=== PATIENT | female | born 1960 | race Caucasian/White ===

== ENCOUNTER → 2017-11-08 | Outpatient (CLI) | payer BC ==
[~2017-11-08] MED LIST: GABAPENTIN PO; HYDROCHLOROTHIAZIDE PO; LIPITOR PO; LISINOPRIL20 MG PO; METFORMIN HCL500 MG PO; NOVOLOG100 UNITS/ SQ; TRICOR PO; [UNRECOGNIZED DRUG - OTHER] PO
--- NOTE | 2017-11-09 08:37 | Diagnostic Imaging Report ---
TECHNIQUE: Magnetic resonance imaging of the RIGHT KNEE was performed WITHOUT injected contrast. HISTORY: Stiffness of right knee, pain, in the right side COMPARISON: None available. FINDINGS: LIGAMENTS AND TENDONS: ACL: Intact PCL: Intact Collateral ligaments: Intact Iliotibial band: Unremarkable Popliteal tendon: Intact Extensor mechanism: Intact JOINT: Menisci: Medial: A vertically oriented posterior root tear near the tibial attachment, results in near complete transection of the meniscus and peripheral extrusion of the body. Intrasubstance degeneration of the body and remaining posterior horn. Lateral: Intact Articular Cartilage: Medial Compartment: Low-grade erosion of the weightbearing cartilage. Lateral Compartment: No focal defect. Patellofemoral Compartment: Diffuse erosion, most notably intermediate grade at the patellar apex. Joint Fluid: Trace effusion and synovitis along with a nondistended Conner's cyst. BONES: No focal or infiltrative bone marrow replacing abnormality. Focal bone marrow edema within the subchondral weightbearing bone at the periphery of the medial tibial plateau with central ill-defined linear hypointense signal (series 5 image 14 and series 6 image 14). SOFT TISSUES: Mild diffuse superficial soft tissue edema. IMPRESSION: 1. Focal, nondisplaced, incomplete subchondral fracture at the periphery of the medial tibial plateau. Consider an evolving insufficiency fracture, recommend correlation with bone densitometry. 2. Degenerative posterior root tear of the medial meniscus. 3. Mild medial and patellofemoral compartment osteoarthrosis. Signed by: Dr. Daryl Garza D.O., M.M.M. on 11/09/2017 8:33 AM
== END ==
LOC: MRI 13:31
PROVIDERS: ATTEND Family Medicine
DX: M25.661 Stiffness of right knee, not elsewhere classified (principal)

== ENCOUNTER → 2020-09-19 | Outpatient (CLI) | payer BC ==
[2020-09-19 16:35] LABS: CREATININE, SERUM 2.95 mg/dL (0.57-1.11)
== END ==
LOC: CT 15:52
PROVIDERS: ATTEND Internal Medicine Cardiovascular Disease
DX: G45.9 Transient cerebral ischemic attack, unspecified (principal); I77.9 Disorder of arteries and arterioles, unspecified; H53.9 Unspecified visual disturbance
CPT/HCPCS: 36415; 82565; 84520

== ENCOUNTER 2021-01-03 15:24 | Inpatient (IN) | payer BC ==
[~2021-01-03] VITALS: Ht 165.1 cm; Wt 115.7 kg
[2021-01-03] MEDS ORDERED: ASPIRIN 81 MG CHEW TAB PO STA (16:28)
[2021-01-03 17:19] LABS: BASOPHILS # (AUTO) 0.1 (0.0-0.1); BASOPHILS % 0.8 % (0.0-1.0); EOSINOPHILS # (AUTO) 0.2 (0.0-0.4); EOSINOPHILS % 1.8 % (0.0-6.0); HEMATOCRIT 37.6 % (34.2-44.1); HEMOGLOBIN 11.4 g/dL (12.0-16.0); LYMPHOCYTES # (AUTO) 1.9 (1.0-3.2); LYMPHOCYTES % 19.2 % (18.0-39.1); MEAN CORPUSCULAR HEMOGLOBIN 26.5 pg (28-32); MEAN CORPUSCULAR HGB CONC 30.3 g/dL (31-35); MEAN CORPUSCULAR VOLUME 87.2 fL (81-99); MONOCYTES # (AUTO) 0.9 (0.2-0.8); NEUTROPHILS # (AUTO) 6.8 (2.1-6.9); NEUTROPHILS % 68.7 % (38.7-80.0); PLATELET COUNT 419 x10e3/uL (140-360); RED BLOOD COUNT 4.31 x10e6/uL (3.6-5.1); RED CELL DISTRIBUTION WIDTH 13.6 % (11.7-14.4)
[2021-01-03 17:35] LABS: ALBUMIN/GLOBULIN RATIO 0.8 (0.8-2.0); ANION GAP 15.8 mmol/L (8-16); CALCIUM 9.2 mg/dL (8.4-10.2); CREATININE, SERUM 3.33 mg/dL (0.57-1.11); MAGNESIUM 2.2 MG/DL (1.3-2.1); POTASSIUM 4.8 mmol/L (3.5-5.1)
[2021-01-03] MEDS ORDERED: CLOPIDOGREL BISULFATE 75 MG TAB PO ONE (18:00)
[2021-01-03] MEDS ORDERED: HEPARIN SOD (PORCINE) 5,000 UNIT/ML VIAL IV ONE (18:00)
[2021-01-03] MEDS ORDERED: ASPIRIN 81 MG CHEW TAB PO ONE (18:00)
[2021-01-03] MEDS ORDERED: SODIUM CHLORIDE FLUSH 10 ML SYR INJ PRN (18:30)
[2021-01-03] MEDS ORDERED: DEXTROSE 50% SYRINGE 50 ML IV PRN (18:30)
[2021-01-03 19:49] LABS: INR 0.99; PROTHROMBIN TIME 13.7 seconds (11.9-14.5)
[2021-01-03 19:50] LABS: PARTIAL THROMBOPLASTIN TIME 28.6 seconds (23.8-35.5)
[2021-01-03] MEDS: HEPARIN 25,000 UNIT 1,000 UNIT in DEXTROSE 5% 250ML 250 ML IV SCH (20:05)
[2021-01-03] MEDS ORDERED: HEPARIN 25,000 UNIT DRIP IV ONE (20:11)
[2021-01-03 21:30] VITALS: BP 176/74
[2021-01-03 21:55] VITALS: BP 114/59
[2021-01-03] MEDS: INSULIN REGULAR, HUMAN 100 UNIT/1 ML 3ML VIAL SQ SCH (21:57)
[2021-01-03] MEDS ORDERED: ASPIRIN CHEW81 MG PO (23:10)
[2021-01-03] MEDS ORDERED: ATORVASTATIN CA20 MG PO (23:10)
[2021-01-03] MEDS ORDERED: GABAPENTIN800 MG (23:10)
[2021-01-03] MEDS ORDERED: METOPROLOL TART25 MG PO (23:10)
[2021-01-03] MEDS ORDERED: LISINOPRIL10 MG PO (23:10)
[2021-01-03] MEDS ORDERED: NOVOLIN 70100 UNIT/3 (23:10)
[2021-01-03] MEDS ORDERED: GABAPENTIN 400 MG CAP PO SCH (23:25)
[2021-01-03] MEDS ORDERED: GABAPENTIN 400 MG CAP PO ONE (23:30)
[2021-01-04] VITALS (8 sets, daily range): BP systolic 143–181; BP diastolic 65–88
[2021-01-04 02:25] LABS: BASOPHILS # (AUTO) 0.1 (0.0-0.1); BASOPHILS % 0.8 % (0.0-1.0); EOSINOPHILS # (AUTO) 0.3 (0.0-0.4); HEMATOCRIT 33.7 % (34.2-44.1); HEMOGLOBIN 10.6 g/dL (12.0-16.0); LYMPHOCYTES % 20.9 % (18.0-39.1); MEAN CORPUSCULAR HGB CONC 31.5 g/dL (31-35); MONOCYTES # (AUTO) 0.8 (0.2-0.8); MONOCYTES % 8.1 % (4.4-11.3); NEUTROPHILS # (AUTO) 6.3 (2.1-6.9); NEUTROPHILS % 66.9 % (38.7-80.0); PLATELET COUNT 418 x10e3/uL (140-360); RED BLOOD COUNT 3.92 x10e6/uL (3.6-5.1); RED CELL DISTRIBUTION WIDTH 13.7 % (11.7-14.4)
[2021-01-04 02:49] LABS: CREATINE KINASE MB 13.1 ng/mL (0-5.0)
[2021-01-04 02:57] LABS: ALBUMIN 2.7 g/dL (3.5-5.0); ALBUMIN/GLOBULIN RATIO 0.8 (0.8-2.0); ANION GAP 13.6 mmol/L (8-16); CALCIUM 8.7 mg/dL (8.4-10.2); CHOL/HDL RATIO 5.6 (3.0-3.6); CREATININE, SERUM 3.17 mg/dL (0.57-1.11); POTASSIUM 4.6 mmol/L (3.5-5.1)
[2021-01-04] MEDS: INSULIN REGULAR, HUMAN 100 UNIT/1 ML 3ML VIAL SQ SCH ×4 (07:30→21:00)
[2021-01-04] MEDS: CLOPIDOGREL BISULFATE 75 MG TAB PO SCH (08:16)
[2021-01-04] MEDS ORDERED: CLOPIDOGREL BISULFATE 75 MG TAB PO SCH (09:00)
[2021-01-04] MEDS ORDERED: ASPIRIN 81 MG ENTERIC COATED PO SCH (09:00)
[2021-01-04] MEDS ORDERED: HYDROCHLOROTHIA25 MG PO (09:54)
[2021-01-04] MEDS ORDERED: TRICOR145 MG PO (09:54)
[2021-01-04] MEDS ORDERED: HYDRALAZINE HCL 20 MG/ML VIAL IV PRN (15:00)
[2021-01-04] MEDS: LISINOPRIL 10 MG TAB PO SCH (16:09)
[2021-01-04] MEDS: GABAPENTIN 300 MG CAP PO SCH ×2 (16:09→23:12)
[2021-01-04] MEDS ORDERED: FUROSEMIDE 40 MG TAB PO NR (16:15)
[2021-01-04] MEDS: HEPARIN 25,000 UNIT 1,000 UNIT in DEXTROSE 5% 250ML 250 ML IV SCH (17:17)
[2021-01-04] MEDS ORDERED: ATORVASTATIN 20 MG TAB PO SCH (21:00)
[2021-01-04] MEDS ORDERED: INSULIN GLARGINE 100 UNITS/ML VIAL SQ SCH (21:00)
[2021-01-04] MEDS: ONDANSETRON HCL INJ 2MG/ML 2ML 2 MG/ML VIAL IV PRN (21:23)
[2021-01-04] MEDS: MORPHINE SULFATE INJ 2 MG/ML SYR IV PRN (21:23)
[2021-01-05] VITALS (7 sets, daily range): BP systolic 109–150; BP diastolic 55–79
[2021-01-05 06:28] LABS: BASOPHILS # (AUTO) 0.1 (0.0-0.1); BASOPHILS % 0.8 % (0.0-1.0); EOSINOPHILS # (AUTO) 0.3 (0.0-0.4); EOSINOPHILS % 3.5 % (0.0-6.0); HEMATOCRIT 36.4 % (34.2-44.1); HEMOGLOBIN 11.4 g/dL (12.0-16.0); LYMPHOCYTES % 28.6 % (18.0-39.1); MEAN CORPUSCULAR HEMOGLOBIN 27.2 pg (28-32); MEAN CORPUSCULAR HGB CONC 31.3 g/dL (31-35); MEAN CORPUSCULAR VOLUME 86.9 fL (81-99); MONOCYTES # (AUTO) 0.8 (0.2-0.8); MONOCYTES % 10.9 % (4.4-11.3); NEUTROPHILS % 55.8 % (38.7-80.0); PLATELET COUNT 437 x10e3/uL (140-360); RED BLOOD COUNT 4.19 x10e6/uL (3.6-5.1); RED CELL DISTRIBUTION WIDTH 13.9 % (11.7-14.4)
[2021-01-05 07:19] LABS: ALBUMIN 2.8 g/dL (3.5-5.0); ALBUMIN/GLOBULIN RATIO 0.8 (0.8-2.0); ANION GAP 15.5 mmol/L (8-16); CALCIUM 8.5 mg/dL (8.4-10.2); CREATININE, SERUM 3.45 mg/dL (0.57-1.11); POTASSIUM 4.5 mmol/L (3.5-5.1)
[2021-01-05] MEDS: INSULIN REGULAR, HUMAN 100 UNIT/1 ML 3ML VIAL SQ SCH ×2 (07:30→11:30)
[2021-01-05] MEDS: LISINOPRIL 10 MG TAB PO SCH (07:58)
[2021-01-05] MEDS: CLOPIDOGREL BISULFATE 75 MG TAB PO SCH (07:58)
[2021-01-05] MEDS: GABAPENTIN 300 MG CAP PO SCH (07:58)
[2021-01-05] MEDS ORDERED: METOPROLOL TARTRATE 25 MG TAB PO SCH (09:00)
[2021-01-05] MEDS ORDERED: ASPIRIN 81 MG CHEW TAB PO SCH (09:00)
[2021-01-05] MEDS ORDERED: FUROSEMIDE 40 MG TAB PO SCH (09:00)
[2021-01-05] MEDS: ONDANSETRON HCL INJ 2MG/ML 2ML 2 MG/ML VIAL IV PRN (10:49)
[2021-01-05] MEDS: MORPHINE SULFATE INJ 2 MG/ML SYR IV PRN (10:50)
[2021-01-05] MEDS: HEPARIN 25,000 UNIT 1,000 UNIT in DEXTROSE 5% 250ML 250 ML IV SCH (14:13)
[2021-01-05] MEDS ORDERED: NIFEDIPINE ER30 M1 PO (15:25)
[2021-01-05] MEDS ORDERED: PLAVIX75 MG PO (15:25)
[2021-01-05] MEDS ORDERED: GABAPENTIN300 MG PO (15:25)
[2021-01-05] MEDS ORDERED: COREG6.25 MG PO (15:49)
== END 2021-01-05 16:10 | disposition home or self-care (01) | DRG 281 ==
LOC: ER 16:29 → ERHOLD 19:05 → MED/SURG 21:51
PROVIDERS: ADMIT Internal Medicine; ATTEND Internal Medicine
DX: I21.4 Non-ST elevation (NSTEMI) myocardial infarction (principal); N17.9 Acute kidney failure, unspecified; Z68.41 Body mass index [BMI] 40.0-44.9, adult; I13.2 Hypertensive heart and chronic kidney disease with heart failure and with stage 5 chronic kidney disease, or end stage renal disease; N18.5 Chronic kidney disease, stage 5; E66.01 Morbid (severe) obesity due to excess calories; I25.10 Atherosclerotic heart disease of native coronary artery without angina pectoris; E11.22 Type 2 diabetes mellitus with diabetic chronic kidney disease; I50.9 Heart failure, unspecified
CPT/HCPCS: 36415; 71045; 80053; 80061; 82550; 82553; 82948; 83735; 83880; 84484; 85025; 85610; 85730; 93005; 93306; 99284; J1644; J1817; J2270; J2405; U0002

== ENCOUNTER 2021-01-11 21:14 | Inpatient (IN) | payer BC ==
[~2021-01-11] VITALS: Ht 165.1 cm; Wt 115.7 kg
[~2021-01-11 21:14] MED LIST changes: +ASPIRIN CHEW81 MG PO; +ATORVASTATIN CA20 MG PO; +COREG6.25 MG PO; +GABAPENTIN300 MG PO; +GABAPENTIN800 MG; +HYDROCHLOROTHIA25 MG PO; +LISINOPRIL10 MG PO; +METOPROLOL TART25 MG PO; +NIFEDIPINE ER30 M1 PO; +NOVOLIN 70100 UNIT/3; +PLAVIX75 MG PO; +TRICOR145 MG PO
[2021-01-11 22:07] LABS: BASOPHILS # (AUTO) 0.1 (0.0-0.1); BASOPHILS % 0.9 % (0.0-1.0); EOSINOPHILS # (AUTO) 0.3 (0.0-0.4); EOSINOPHILS % 2.6 % (0.0-6.0); HEMATOCRIT 33.8 % (34.2-44.1); HEMOGLOBIN 10.5 g/dL (12.0-16.0); LYMPHOCYTES # (AUTO) 2.5 (1.0-3.2); LYMPHOCYTES % 25.5 % (18.0-39.1); MEAN CORPUSCULAR HGB CONC 31.1 g/dL (31-35); MEAN CORPUSCULAR VOLUME 86.9 fL (81-99); MONOCYTES # (AUTO) 0.9 (0.2-0.8); MONOCYTES % 8.8 % (4.4-11.3); NEUTROPHILS % 61.6 % (38.7-80.0); PLATELET COUNT 443 x10e3/uL (140-360); RED BLOOD COUNT 3.89 x10e6/uL (3.6-5.1); RED CELL DISTRIBUTION WIDTH 14.2 % (11.7-14.4)
[2021-01-12 00:11] LABS: ALBUMIN/GLOBULIN RATIO 0.8 (0.8-2.0); ANION GAP 17.5 mmol/L (8-16); CALCIUM 8.7 mg/dL (8.4-10.2); CREATININE, SERUM 3.81 mg/dL (0.57-1.11)
[2021-01-12 00:18] LABS: CREATINE KINASE MB 6.4 ng/mL (0-5.0)
[2021-01-12 00:19] LABS: POTASSIUM 5.5 mmol/L (3.5-5.1)
[2021-01-12] MEDS ORDERED: SODIUM BICARBONATE 8.4% INJ 50 ML SYR IV STA (01:34)
[2021-01-12] MEDS ORDERED: SOD POLYSTYRENE SULFONATE SUSP 15 GM/60 ML BTL PO ONE (01:45)
[2021-01-12 07:54] LABS: CREATINE KINASE MB 11.4 ng/mL (0-5.0)
[2021-01-12] MEDS: ASPIRIN 81 MG CHEW TAB PO SCH (08:58)
[2021-01-12] MEDS: NIFEDIPINE CR 30 MG TAB PO SCH (08:59)
[2021-01-12] MEDS: GABAPENTIN 300 MG CAP PO SCH ×2 (08:59→17:55)
[2021-01-12] MEDS: ATORVASTATIN 40 MG TAB PO SCH (08:59)
[2021-01-12] MEDS: CLOPIDOGREL BISULFATE 75 MG TAB PO SCH (08:59)
[2021-01-12] MEDS: FENOFIBRATE 145 MG TAB PO SCH (08:59)
[2021-01-12] MEDS ORDERED: NPH, HUMAN INSULIN ISOPHANE 100 UNIT/1 ML 3ML VIAL SQ SCH (09:00)
[2021-01-12] MEDS: CARVEDILOL 3.125 MG TAB PO SCH ×2 (09:07→17:55)
[2021-01-12] MEDS: HUMULIN 70/30 VIAL SQ SCH (12:07)
[2021-01-12 12:30] LABS: CALCIUM 8.9 mg/dL (8.4-10.2); CREATININE, SERUM 3.48 mg/dL (0.57-1.11)
[2021-01-12 15:57] LABS: FERRITIN 146.02 ng/mL (4.63-204.00)
[2021-01-12 17:12] LABS: CREATINE KINASE MB 9.1 ng/mL (0-5.0)
[2021-01-12 19:24] LABS: CLARITY,URINE HAZY (CLEAR); COLOR,URINE YELLOW (YELLOW)
[2021-01-12 19:25] LABS: KETONES,URINE NEGATIVE (NEGATIVE); LEUKOCYTE ESTERASE ,URINE NEGATIVE (NEGATIVE); NITRITE,URINE NEGATIVE (NEGATIVE); PROTEIN,URINE DIPSTICK >=300 (NEGATIVE); URINE UROBILINOGEN 0.2 mg/dL (0.2 - 1)
[2021-01-12 19:43] LABS: BACTERIA,URINE MANY /HPF
[2021-01-12 20:19] LABS: CREATININE,URINE RANDOM 57.98 mg/dL (47-110)
[2021-01-12 20:33] LABS: TOTAL PROTEIN, URINE 451.4 mg/dL (1-14)
[2021-01-13 05:50] LABS: BASOPHILS # (AUTO) 0.1 (0.0-0.1); BASOPHILS % 0.9 % (0.0-1.0); EOSINOPHILS # (AUTO) 0.3 (0.0-0.4); EOSINOPHILS % 3.6 % (0.0-6.0); HEMATOCRIT 36.1 % (34.2-44.1); HEMOGLOBIN 10.8 g/dL (12.0-16.0); LYMPHOCYTES % 34.2 % (18.0-39.1); MEAN CORPUSCULAR HEMOGLOBIN 26.7 pg (28-32); MEAN CORPUSCULAR HGB CONC 29.9 g/dL (31-35); MEAN CORPUSCULAR VOLUME 89.1 fL (81-99); MONOCYTES # (AUTO) 0.9 (0.2-0.8); MONOCYTES % 10.7 % (4.4-11.3); NEUTROPHILS # (AUTO) 4.4 (2.1-6.9); NEUTROPHILS % 50.1 % (38.7-80.0); PLATELET COUNT 397 x10e3/uL (140-360); RED BLOOD COUNT 4.05 x10e6/uL (3.6-5.1); RED CELL DISTRIBUTION WIDTH 13.9 % (11.7-14.4)
[2021-01-13 06:43] LABS: ALBUMIN 2.8 g/dL (3.5-5.0); ALBUMIN/GLOBULIN RATIO 0.8 (0.8-2.0); ANION GAP 18.1 mmol/L (8-16); CALCIUM 8.6 mg/dL (8.4-10.2); CREATININE, SERUM 2.92 mg/dL (0.57-1.11); POTASSIUM 5.1 mmol/L (3.5-5.1)
[2021-01-13] MEDS ORDERED: DEXTROSE 50% SYRINGE 50 ML IV PRN (07:30)
[2021-01-13] MEDS: ASPIRIN 81 MG CHEW TAB PO SCH (08:47)
[2021-01-13] MEDS: NIFEDIPINE CR 30 MG TAB PO SCH (08:48)
[2021-01-13] MEDS: CLOPIDOGREL BISULFATE 75 MG TAB PO SCH (08:48)
[2021-01-13] MEDS: GABAPENTIN 300 MG CAP PO SCH (08:48)
[2021-01-13] MEDS: ATORVASTATIN 40 MG TAB PO SCH (08:48)
[2021-01-13] MEDS: CARVEDILOL 3.125 MG TAB PO SCH ×2 (08:48→17:00)
[2021-01-13] MEDS: FENOFIBRATE 145 MG TAB PO SCH (08:48)
[2021-01-13] MEDS: HUMULIN 70/30 VIAL SQ SCH ×2 (08:49→16:30)
[2021-01-13] MEDS: INSULIN LISPRO 100 UNIT/1 ML 3ML VIAL SQ SCH ×4 (08:49→21:00)
[2021-01-14 04:00] VITALS: BP 168/81
[2021-01-14] MEDS: HUMULIN 70/30 VIAL SQ SCH ×2 (07:30→16:32)
[2021-01-14] MEDS: INSULIN LISPRO 100 UNIT/1 ML 3ML VIAL SQ SCH ×4 (07:30→20:59)
[2021-01-14] MEDS: NIFEDIPINE CR 30 MG TAB PO SCH (09:00)
[2021-01-14] MEDS: FENOFIBRATE 145 MG TAB PO SCH (09:00)
[2021-01-14] MEDS: ASPIRIN 81 MG CHEW TAB PO SCH (09:00)
[2021-01-14] MEDS: ATORVASTATIN 40 MG TAB PO SCH (09:00)
[2021-01-14] MEDS: CARVEDILOL 3.125 MG TAB PO SCH ×2 (09:00→16:26)
[2021-01-14] MEDS: CLOPIDOGREL BISULFATE 75 MG TAB PO SCH (09:00)
[2021-01-14] MEDS ORDERED: FUROSEMIDE 40 MG TAB ONE (12:43)
[2021-01-14] MEDS: FUROSEMIDE INJ 10 MG/ML 4 ML VIAL IV SCH ×3 (12:45→16:32)
[2021-01-14] MEDS ORDERED: GABAPENTIN 300 MG CAP ONE (13:48)
[2021-01-14 16:00] VITALS: BP 139/53
[2021-01-14] MEDS: GABAPENTIN 300 MG CAP PO SCH ×2 (16:24→21:00)
[2021-01-14 17:23] LABS: BASOPHILS # (AUTO) 0.1 (0.0-0.1); BASOPHILS % 0.1 % (0.0-1.0); EOSINOPHILS # (AUTO) 0.3 (0.0-0.4); EOSINOPHILS % 3.2 % (0.0-6.0); HEMATOCRIT 35.3 % (34.2-44.1); HEMOGLOBIN 10.9 g/dL (12.0-16.0); LYMPHOCYTES # (AUTO) 2.9 (1.0-3.2); LYMPHOCYTES % 31.5 % (18.0-39.1); MEAN CORPUSCULAR HGB CONC 30.9 g/dL (31-35); MEAN CORPUSCULAR VOLUME 87.4 fL (81-99); MONOCYTES # (AUTO) 0.9 (0.2-0.8); MONOCYTES % 9.6 % (4.4-11.3); NEUTROPHILS % 53.7 % (38.7-80.0); PLATELET COUNT 421 x10e3/uL (140-360); RED CELL DISTRIBUTION WIDTH 13.8 % (11.7-14.4)
[2021-01-14 17:24] LABS: CALCIUM 8.6 mg/dL (8.4-10.2); CREATININE, SERUM 2.82 mg/dL (0.57-1.11)
[2021-01-14 20:00] VITALS: BP 147/64
[2021-01-15] VITALS (12 sets, daily range): BP systolic 118–157; BP diastolic 61–78
[2021-01-15] MEDS: FUROSEMIDE INJ 10 MG/ML 4 ML VIAL IV SCH ×2 (05:20→17:11)
[2021-01-15 07:01] LABS: ANION GAP 14.1 mmol/L (8-16); CALCIUM 8.1 mg/dL (8.4-10.2); CREATININE, SERUM 3.05 mg/dL (0.57-1.11); POTASSIUM 5.1 mmol/L (3.5-5.1)
[2021-01-15] MEDS: HUMULIN 70/30 VIAL SQ SCH ×2 (07:30→17:09)
[2021-01-15] MEDS: INSULIN LISPRO 100 UNIT/1 ML 3ML VIAL SQ SCH ×4 (07:30→21:33)
[2021-01-15] MEDS: ATORVASTATIN 40 MG TAB PO SCH (09:00)
[2021-01-15] MEDS: GABAPENTIN 300 MG CAP PO SCH ×3 (09:00→17:33)
[2021-01-15] MEDS: ASPIRIN 81 MG CHEW TAB PO SCH (09:00)
[2021-01-15] MEDS: CLOPIDOGREL BISULFATE 75 MG TAB PO SCH (09:00)
[2021-01-15] MEDS: NIFEDIPINE CR 30 MG TAB PO SCH (09:00)
[2021-01-15] MEDS: FENOFIBRATE 145 MG TAB PO SCH (09:00)
[2021-01-15] MEDS: CARVEDILOL 3.125 MG TAB PO SCH ×2 (09:00→17:09)
[2021-01-15] MEDS ORDERED: SODIUM CHLORIDE 0.9% 1000ML 1,000 ML ONE (12:24)
[2021-01-15] MEDS ORDERED: BENZOCAINE 20% SPR 60 ML CAN ONE (12:24)
[2021-01-15] MEDS ORDERED: POVIDONE IODINE 0.05% 0.05 % ML PO ONE (13:35)
[2021-01-15] MEDS ORDERED: LIDOCAINE HCL 2% LOCAL INJ 5 ML SDV VIAL INJ ONE (13:35)
[2021-01-15] MEDS ORDERED: PROPOFOL IV EMULSION 10 MG/ML 20 ML VIAL ONE (13:35)
[2021-01-15 19:09] LABS: ALPHA 2 GLOBULIN URINE PEP 6.5 % (.)
[2021-01-15] MEDS ORDERED: ACETAMINOPHEN 325 MG TAB PO PRN (19:30)
[2021-01-16] VITALS: BP 158/68
[2021-01-16 04:00] VITALS: BP 154/68
[2021-01-16] MEDS: FUROSEMIDE INJ 10 MG/ML 4 ML VIAL IV SCH (05:26)
[2021-01-16 05:59] LABS: CALCIUM 8.3 mg/dL (8.4-10.2); CREATININE, SERUM 3.09 mg/dL (0.57-1.11)
[2021-01-16] MEDS: HUMULIN 70/30 VIAL SQ SCH (07:30)
[2021-01-16 08:44] VITALS: BP 137/67
[2021-01-16 09:04] VITALS: BP 137/67
[2021-01-16] MEDS: GABAPENTIN 300 MG CAP PO SCH (09:15)
[2021-01-16] MEDS: ASPIRIN 81 MG CHEW TAB PO SCH (09:15)
[2021-01-16] MEDS: CARVEDILOL 3.125 MG TAB PO SCH (09:15)
[2021-01-16] MEDS: NIFEDIPINE CR 30 MG TAB PO SCH (09:15)
[2021-01-16] MEDS: CLOPIDOGREL BISULFATE 75 MG TAB PO SCH (09:15)
[2021-01-16] MEDS: FENOFIBRATE 145 MG TAB PO SCH (09:15)
[2021-01-16] MEDS: ATORVASTATIN 40 MG TAB PO SCH (09:15)
[2021-01-16] MEDS ORDERED: GABAPENTIN300 MG PO (10:49)
[2021-01-16] MEDS ORDERED: LIPITOR20 MG PO (10:50)
[2021-01-16] MEDS ORDERED: FUROSEMIDE40 MG PO (10:56)
[2021-01-16] MEDS: INSULIN LISPRO 100 UNIT/1 ML 3ML VIAL SQ SCH ×2 (11:30→11:32)
== END 2021-01-16 12:33 | disposition home or self-care (01) | DRG 65 ==
LOC: ER 21:50 → ERHOLD 01-12 01:31 → MED/SURG2 01-12 03:17 → OBSVTOIN 01-13 16:05
PROVIDERS: ADMIT Internal Medicine; ATTEND Internal Medicine
DX: I63.81 Other cerebral infarction due to occlusion or stenosis of small artery (principal); N17.9 Acute kidney failure, unspecified; I13.0 Hypertensive heart and chronic kidney disease with heart failure and stage 1 through stage 4 chronic kidney disease, or unspecified chronic kidney disease; N18.4 Chronic kidney disease, stage 4 (severe); I50.30 Unspecified diastolic (congestive) heart failure; Z68.41 Body mass index [BMI] 40.0-44.9, adult; E87.2 Acidosis; I50.32 Chronic diastolic (congestive) heart failure; E11.42 Type 2 diabetes mellitus with diabetic polyneuropathy; R29.810 Facial weakness; G83.24 Monoplegia of upper limb affecting left nondominant side; E11.21 Type 2 diabetes mellitus with diabetic nephropathy; I11.0 Hypertensive heart disease with heart failure; E78.5 Hyperlipidemia, unspecified; E66.01 Morbid (severe) obesity due to excess calories; E11.22 Type 2 diabetes mellitus with diabetic chronic kidney disease; D63.1 Anemia in chronic kidney disease; I25.10 Atherosclerotic heart disease of native coronary artery without angina pectoris; Z83.3 Family history of diabetes mellitus; Z82.49 Family history of ischemic heart disease and other diseases of the circulatory system; Z84.1 Family history of disorders of kidney and ureter; E87.5 Hyperkalemia
CPT/HCPCS: 36415; 70450; 70544; 70547; 70551; 71045; 76770; 80048; 80053; 81001; 82550; 82553; 82570; 82728; 82948; 83540; 83735; 83880; 84100; 84156; 84165; 84166; 84466; 84484; 85025; 93005; 93306; 93307; 93312; 93325; 99284; G0378; J1940; J2001; J7030

== ENCOUNTER 2021-02-23 09:28 | Inpatient (IN) | payer BC ==
[~2021-02-23] VITALS: Ht 165.1 cm; Wt 115.7 kg
[~2021-02-23 09:28] MED LIST changes: +FUROSEMIDE40 MG PO; +LIPITOR20 MG PO
[2021-02-23] MEDS ORDERED: DEXTROSE 50% SYRINGE 50 ML IV STA ×2 (09:39→10:34)
[2021-02-23] MEDS ORDERED: DEXTROSE 50% SYRINGE 50 ML IV ONE (09:41)
[2021-02-23 09:50] LABS: BASOPHILS # (AUTO) 0.1 (0.0-0.1); EOSINOPHILS # (AUTO) 0.3 (0.0-0.4); EOSINOPHILS % 3.3 % (0.0-6.0); HEMATOCRIT 33.4 % (34.2-44.1); HEMOGLOBIN 10.1 g/dL (12.0-16.0); LYMPHOCYTES # (AUTO) 2.3 (1.0-3.2); LYMPHOCYTES % 27.5 % (18.0-39.1); MEAN CORPUSCULAR HEMOGLOBIN 26.2 pg (28-32); MEAN CORPUSCULAR HGB CONC 30.2 g/dL (31-35); MEAN CORPUSCULAR VOLUME 86.8 fL (81-99); MONOCYTES # (AUTO) 1.1 (0.2-0.8); MONOCYTES % 13.8 % (4.4-11.3); NEUTROPHILS # (AUTO) 4.5 (2.1-6.9); PLATELET COUNT 507 x10e3/uL (140-360); RED BLOOD COUNT 3.85 x10e6/uL (3.6-5.1); RED CELL DISTRIBUTION WIDTH 13.8 % (11.7-14.4)
[2021-02-23] MEDS ORDERED: FUROSEMIDE40 MG PO (09:50)
[2021-02-23] MEDS ORDERED: TRICOR145 MG PO (09:50)
[2021-02-23] MEDS ORDERED: NIFEDIPINE ER30 M1 PO (09:50)
[2021-02-23] MEDS ORDERED: CLOPIDOGREL75 MG PO (09:50)
[2021-02-23] MEDS ORDERED: GABAPENTIN800 MG PEG (09:50)
[2021-02-23] MEDS ORDERED: ISOSORBIDE MONO60 MG PO (09:50)
[2021-02-23] MEDS ORDERED: METOPROLOL TART25 MG PO (09:50)
[2021-02-23] MEDS ORDERED: COREG6.25 MG PO (09:50)
[2021-02-23 10:07] LABS: ALBUMIN/GLOBULIN RATIO 0.8 (0.8-2.0); ANION GAP 14.8 mmol/L (8-16); CALCIUM 8.4 mg/dL (8.4-10.2); CREATININE, SERUM 3.17 mg/dL (0.57-1.11); MAGNESIUM 2.1 MG/DL (1.3-2.1); POTASSIUM 3.8 mmol/L (3.5-5.1)
[2021-02-23 10:14] LABS: CREATINE KINASE MB 3.5 ng/mL (0-5.0)
[2021-02-23 10:19] LABS: CLARITY,URINE CLEAR (CLEAR); COLOR,URINE YELLOW (YELLOW)
[2021-02-23 10:20] LABS: KETONES,URINE NEGATIVE (NEGATIVE); LEUKOCYTE ESTERASE ,URINE TRACE (NEGATIVE); NITRITE,URINE NEGATIVE (NEGATIVE); PROTEIN,URINE DIPSTICK >=300 (NEGATIVE); URINE UROBILINOGEN 0.2 mg/dL (0.2 - 1)
[2021-02-23 10:28] LABS: INR 1.09; PROTHROMBIN TIME 14.3 seconds (11.9-14.5)
[2021-02-23 10:37] LABS: EPITHELIAL CELLS,URINE FEW /LPF
[2021-02-23 10:38] LABS: BACTERIA,URINE FEW /HPF
[2021-02-23] MEDS ORDERED: DEXTROSE 5% 1,000 ML IV ONE ×2 (10:45)
[2021-02-23] MEDS ORDERED: DEXTROSE 50% SYRINGE 50 ML IV PRN ×2 (11:00→11:45)
[2021-02-23] MEDS: CEFTRIAXONE 1 GM in SODIUM CHLORIDE 0.9% 50ML 50 ML IV SCH ×2 (11:19→22:37)
[2021-02-23] MEDS ORDERED: ONDANSETRON HCL INJ 2MG/ML 2ML 2 MG/ML VIAL IV PRN (11:45)
[2021-02-23 13:07] VITALS: BP 152/80
[2021-02-23] MEDS: GABAPENTIN 400 MG CAP PEG SCH ×2 (16:14→20:08)
[2021-02-23] MEDS: INSULIN LISPRO 100 UNIT/1 ML 3ML VIAL SQ SCH ×2 (16:17→20:04)
[2021-02-23 16:19] VITALS: BP 139/69
[2021-02-23] MEDS: MUPIROCIN 2% OINT 22 GM TUBE TOP SCH (17:00)
[2021-02-23 17:34] LABS: CREATINE KINASE MB 5.4 ng/mL (0-5.0)
[2021-02-23 19:39] VITALS: BP 183/82
[2021-02-23] MEDS: NIFEDIPINE CR 30 MG TAB PO SCH (20:08)
[2021-02-23] MEDS: METOPROLOL TARTRATE 25 MG TAB PO SCH (20:08)
[2021-02-23 20:17] VITALS: BP 183/82
[2021-02-23] MEDS: ISOSORBIDE MONONITRATE 30 MG TAB CR PO SCH (21:35)
[2021-02-23] MEDS: CARVEDILOL 3.125 MG TAB PO SCH (21:35)
[2021-02-24] VITALS: BP 161/71
[2021-02-24 04:00] VITALS: BP 124/56
[2021-02-24 04:59] LABS: BASOPHILS # (AUTO) 0.1 (0.0-0.1); BASOPHILS % 0.6 % (0.0-1.0); EOSINOPHILS # (AUTO) 0.2 (0.0-0.4); EOSINOPHILS % 2.2 % (0.0-6.0); HEMATOCRIT 28.7 % (34.2-44.1); HEMOGLOBIN 8.8 g/dL (12.0-16.0); LYMPHOCYTES % 22.6 % (18.0-39.1); MEAN CORPUSCULAR HEMOGLOBIN 26.7 pg (28-32); MEAN CORPUSCULAR HGB CONC 30.7 g/dL (31-35); NEUTROPHILS # (AUTO) 5.6 (2.1-6.9); PLATELET COUNT 415 x10e3/uL (140-360); RED CELL DISTRIBUTION WIDTH 13.7 % (11.7-14.4)
[2021-02-24 05:24] LABS: ALBUMIN 2.5 g/dL (3.5-5.0); ALBUMIN/GLOBULIN RATIO 0.8 (0.8-2.0); ANION GAP 16.7 mmol/L (8-16); CALCIUM 7.7 mg/dL (8.4-10.2); CREATININE, SERUM 3.1 mg/dL (0.57-1.11); POTASSIUM 4.7 mmol/L (3.5-5.1)
[2021-02-24 06:22] LABS: CREATINE KINASE MB 3.2 ng/mL (0-5.0)
[2021-02-24 07:57] VITALS: BP 157/80
[2021-02-24] MEDS: GABAPENTIN 400 MG CAP PEG SCH ×2 (08:17→15:27)
[2021-02-24] MEDS: CARVEDILOL 3.125 MG TAB PO SCH (08:18)
[2021-02-24] MEDS: METOPROLOL TARTRATE 25 MG TAB PO SCH (08:18)
[2021-02-24] MEDS: ISOSORBIDE MONONITRATE 30 MG TAB CR PO SCH (08:18)
[2021-02-24] MEDS: NIFEDIPINE CR 30 MG TAB PO SCH (08:18)
[2021-02-24] MEDS: INSULIN LISPRO 100 UNIT/1 ML 3ML VIAL SQ SCH ×3 (08:39→16:08)
[2021-02-24] MEDS ORDERED: NIFEDIPINE CR 30 MG TAB PO SCH (09:00)
[2021-02-24] MEDS ORDERED: FENOFIBRATE 145 MG TAB PO SCH (09:00)
[2021-02-24] MEDS ORDERED: ISOSORBIDE MONONITRATE 30 MG TAB CR PO SCH (09:00)
[2021-02-24] MEDS ORDERED: FUROSEMIDE 40 MG TAB PO SCH (09:00)
[2021-02-24] MEDS ORDERED: CARVEDILOL 3.125 MG TAB PO SCH (09:00)
[2021-02-24] MEDS ORDERED: ASPIRIN 81 MG CHEW TAB PO SCH (09:00)
[2021-02-24] MEDS ORDERED: METOPROLOL TARTRATE 25 MG TAB PO SCH (09:00)
[2021-02-24] MEDS ORDERED: CLOPIDOGREL BISULFATE 75 MG TAB PO SCH (09:00)
[2021-02-24 11:30] VITALS: BP 139/63
[2021-02-24] MEDS: MUPIROCIN 2% OINT 22 GM TUBE TOP SCH ×2 (12:41→16:08)
[2021-02-24] MEDS: CEFTRIAXONE 1 GM in SODIUM CHLORIDE 0.9% 50ML 50 ML IV SCH (12:42)
[2021-02-24 15:22] VITALS: BP 139/63
[2021-02-24 15:42] VITALS: BP 138/72
== END 2021-02-24 17:40 | disposition home or self-care (01) | DRG 637 ==
LOC: ER 09:55 → ERHOLD 11:33 → MED/SURG 12:43
DX: E11.649 Type 2 diabetes mellitus with hypoglycemia without coma (principal); G93.41 Metabolic encephalopathy; I50.32 Chronic diastolic (congestive) heart failure; Z68.41 Body mass index [BMI] 40.0-44.9, adult; I13.0 Hypertensive heart and chronic kidney disease with heart failure and stage 1 through stage 4 chronic kidney disease, or unspecified chronic kidney disease; Z20.822 Contact with and (suspected) exposure to COVID-19; N39.0 Urinary tract infection, site not specified; I25.2 Old myocardial infarction; N18.4 Chronic kidney disease, stage 4 (severe); Z86.73 Personal history of transient ischemic attack (TIA), and cerebral infarction without residual deficits; I11.0 Hypertensive heart disease with heart failure; E66.01 Morbid (severe) obesity due to excess calories; I87.2 Venous insufficiency (chronic) (peripheral); E11.22 Type 2 diabetes mellitus with diabetic chronic kidney disease; D63.8 Anemia in other chronic diseases classified elsewhere; I25.10 Atherosclerotic heart disease of native coronary artery without angina pectoris; L08.9 Local infection of the skin and subcutaneous tissue, unspecified; Z79.899 Other long term (current) drug therapy; Z79.4 Long term (current) use of insulin
CPT/HCPCS: 36415; 51700; 70450; 71045; 80053; 81001; 82550; 82553; 82948; 83735; 83880; 84484; 85025; 85610; 85730; 87040; 87086; 87186; 93005; 99284; J0696; J7070; J7799; U0002

== ENCOUNTER → 2021-03-20 | Day surgery (SDC) | payer BC ==
[2021-03-18 14:31] LABS: BASOPHILS # (AUTO) 0.1 (0.0-0.1); BASOPHILS % 0.8 % (0.0-1.0); EOSINOPHILS # (AUTO) 0.3 (0.0-0.4); EOSINOPHILS % 3.6 % (0.0-6.0); HEMATOCRIT 30.1 % (34.2-44.1); HEMOGLOBIN 9.1 g/dL (12.0-16.0); LYMPHOCYTES # (AUTO) 2.3 (1.0-3.2); LYMPHOCYTES % 26.8 % (18.0-39.1); MEAN CORPUSCULAR HEMOGLOBIN 26.5 pg (28-32); MEAN CORPUSCULAR HGB CONC 30.2 g/dL (31-35); MEAN CORPUSCULAR VOLUME 87.8 fL (81-99); MONOCYTES # (AUTO) 0.9 (0.2-0.8); MONOCYTES % 10.2 % (4.4-11.3); NEUTROPHILS # (AUTO) 4.9 (2.1-6.9); NEUTROPHILS % 58.4 % (38.7-80.0); PLATELET COUNT 426 x10e3/uL (140-360); RED BLOOD COUNT 3.43 x10e6/uL (3.6-5.1); RED CELL DISTRIBUTION WIDTH 14.4 % (11.7-14.4)
[2021-03-18 14:33] LABS: INR 1.18; PROTHROMBIN TIME 15.3 seconds (11.9-14.5)
[2021-03-18 15:06] LABS: ALBUMIN 3.1 g/dL (3.5-5.0); ALBUMIN/GLOBULIN RATIO 1.1 (0.8-2.0); ANION GAP 15.1 mmol/L (8-16); CALCIUM 8.2 mg/dL (8.4-10.2); CREATININE, SERUM 3.71 mg/dL (0.57-1.11); POTASSIUM 5.1 mmol/L (3.5-5.1)
[~2021-03-20] VITALS: Ht 165.1 cm; Wt 113.4 kg
[2021-03-20] VITALS (8 sets, daily range): BP systolic 96–108; BP diastolic 51–62
[~2021-03-20] MED LIST changes: +CLOPIDOGREL75 MG PO; +FENTANYL CITRATE/PF 100MCG/2 ML INJ ONE; +GABAPENTIN800 MG PO; +HEPARIN SOD (PORCINE) 1000 UNIT/ML 30ML ONE; +HEPARIN SOD/SOD CHLORIDE 2,000 ML ONE; +IOPAMIDOL 370 MG/ML 200 ML INFUS..BTL INJ ONE; +ISOSORBIDE MONO60 MG PO; +LIDOCAINE HCL 2% LOCAL 20 ML VIAL ONE; +MIDAZOLAM HCL 2 MG/2 ML VIAL ONE; +SODIUM CHLORIDE 0.9% 1000ML 1,000 ML ONE; +VERAPAMIL HCL 2.5 MG/ML 2 ML VIAL ONE
== END | disposition home or self-care (01) ==
LOC: CATH LAB 07:20
PROVIDERS: ATTEND Internal Medicine Cardiovascular Disease
DX: I25.10 Atherosclerotic heart disease of native coronary artery without angina pectoris (principal); R94.39 Abnormal result of other cardiovascular function study; I10 Essential (primary) hypertension; I87.2 Venous insufficiency (chronic) (peripheral); I73.9 Peripheral vascular disease, unspecified; E78.5 Hyperlipidemia, unspecified; R09.89 Other specified symptoms and signs involving the circulatory and respiratory systems; E11.9 Type 2 diabetes mellitus without complications; Z01.812 Encounter for preprocedural laboratory examination; Z20.822 Contact with and (suspected) exposure to COVID-19; Z79.02 Long term (current) use of antithrombotics/antiplatelets; Z79.82 Long term (current) use of aspirin; Z79.4 Long term (current) use of insulin; Z68.41 Body mass index [BMI] 40.0-44.9, adult; Z86.73 Personal history of transient ischemic attack (TIA), and cerebral infarction without residual deficits; Z82.49 Family history of ischemic heart disease and other diseases of the circulatory system; Z83.3 Family history of diabetes mellitus
CPT/HCPCS: 36415; 80053; 85025; 85610; 93458; C1887; J1644; J2001; J2250; J3010; J7030; Q9967; U0002; 99152

== ENCOUNTER 2022-06-17 02:42 | Emergency (ER) | payer BC ==
[~2022-06-17] VITALS: Ht 165.1 cm; Wt 113.4 kg
[~2022-06-17 02:42] MED LIST changes: -FENTANYL CITRATE/PF 100MCG/2 ML INJ ONE; -HEPARIN SOD (PORCINE) 1000 UNIT/ML 30ML ONE; -HEPARIN SOD/SOD CHLORIDE 2,000 ML ONE; -IOPAMIDOL 370 MG/ML 200 ML INFUS..BTL INJ ONE; -LIDOCAINE HCL 2% LOCAL 20 ML VIAL ONE; -MIDAZOLAM HCL 2 MG/2 ML VIAL ONE; -SODIUM CHLORIDE 0.9% 1000ML 1,000 ML ONE; -VERAPAMIL HCL 2.5 MG/ML 2 ML VIAL ONE
[2022-06-17] MEDS ORDERED: ALBUTEROL/IPRATROPIUM 3 ML NEB NEB STA (02:46)
[2022-06-17] MEDS ORDERED: METHYLPREDNISOLONE SOD SUCC 125 MG/2ML VIAL IV STA (02:46)
[2022-06-17] MEDS ORDERED: FUROSEMIDE INJ 10 MG/ML 4 ML VIAL IV STA (02:49)
[2022-06-17] MEDS ORDERED: NITROGLYCERIN/D5W 200 MCG/ML 250 ML IV STA (03:02)
[2022-06-17 03:10] LABS: BASOPHILS # (AUTO) 0.1 (0.0-0.1); BASOPHILS % 0.8 % (0.0-1.0); EOSINOPHILS # (AUTO) 0.3 (0.0-0.4); EOSINOPHILS % 2.2 % (0.0-6.0); HEMATOCRIT 37.5 % (34.2-44.1); HEMOGLOBIN 10.7 g/dL (12.0-16.0); LYMPHOCYTES # (AUTO) 2.5 (1.0-3.2); LYMPHOCYTES % 18.3 % (18.0-39.1); MEAN CORPUSCULAR HEMOGLOBIN 25.8 pg (28-32); MEAN CORPUSCULAR HGB CONC 28.5 g/dL (31-35); MEAN CORPUSCULAR VOLUME 90.4 fL (81-99); MONOCYTES % 7.1 % (4.4-11.3); NEUTROPHILS # (AUTO) 9.5 (2.1-6.9); NEUTROPHILS % 70.4 % (38.7-80.0); PLATELET COUNT 527 x10e3/uL (140-360); RED BLOOD COUNT 4.15 x10e6/uL (3.6-5.1); RED CELL DISTRIBUTION WIDTH 15.1 % (11.7-14.4)
[2022-06-17] MEDS ORDERED: NITROGLYCERIN/D5W 200 MCG/ML 250 ML ONE (03:17)
[2022-06-17 03:18] LABS: AMPHETAMINES SCREEN,URINE NEGATIVE (NEGATIVE); BENZODIAZEPINES SCREEN,URINE NEGATIVE (NEGATIVE); PHENCYCLIDINE SCREEN,URINE NEGATIVE (NEGATIVE)
[2022-06-17 03:29] LABS: ALBUMIN 2.9 g/dL (3.5-5.0); ALBUMIN/GLOBULIN RATIO 0.8 (0.8-2.0); ANION GAP 23.3 mmol/L (8-16); CALCIUM 8.1 mg/dL (8.4-10.2); CREATININE, SERUM 7.2 mg/dL (0.57-1.11)
[2022-06-17 03:34] LABS: POTASSIUM 6.3 mmol/L (3.5-5.1)
[2022-06-17] MEDS ORDERED: DEXTROSE 50% SYRINGE 50 ML IV STA (03:34)
[2022-06-17] MEDS ORDERED: INSULIN REGULAR, HUMAN 100 UNIT/1 ML SQ STA (03:34)
[2022-06-17 03:35] LABS: CREATINE KINASE MB 7.4 ng/mL (0-5.0)
[2022-06-17] MEDS ORDERED: ALBUTEROL SULF 0.083% NEB SOLN 3 ML NEB NEB STA (03:36)
[2022-06-17 03:42] LABS: ABG HCO3 18 mmol/L (22-26); ABG PCO2 51 mmHg (35-45); ABG PH 7.15 (7.35-7.45); ABG PO2 127 mmHg (80-105); ABG TCO2 19
== END 2022-06-17 05:30 | disposition short-term general hospital (02) ==
LOC: ER 02:46
DX: J81.1 Chronic pulmonary edema (principal); E87.5 Hyperkalemia; E11.22 Type 2 diabetes mellitus with diabetic chronic kidney disease; I13.0 Hypertensive heart and chronic kidney disease with heart failure and stage 1 through stage 4 chronic kidney disease, or unspecified chronic kidney disease; N18.9 Chronic kidney disease, unspecified; I50.9 Heart failure, unspecified; G62.9 Polyneuropathy, unspecified; Z20.822 Contact with and (suspected) exposure to COVID-19; Z79.02 Long term (current) use of antithrombotics/antiplatelets; Z79.82 Long term (current) use of aspirin; Z79.4 Long term (current) use of insulin; Z79.899 Other long term (current) drug therapy
CPT/HCPCS: 36415; 36600; 71045; 80053; 80307; 82550; 82553; 82805; 83605; 83690; 83880; 84484; 85025; 85379; 87040; 93005; 94640; 94799; 99284; J0610; J1817; J1940; J2543; J2930; J7799; U0002